=== PATIENT | female | born 1990 | race Caucasian/White ===

== ENCOUNTER 2023-06-13 17:56 | Emergency (ER) | payer OTHER ==
[2023-06-13 18:06] VITALS: BP 93/55; PULSE 85; RESP 18; TEMP 98; BMI 28.3
[2023-06-13 18:44] LABS: BASO % 1.1 % (0-2.0); EOS % 3.7 % (0-4.5); HEMATOCRIT 42.2 % (32.4-45.2); HEMOGLOBIN 14.1 GM/dL (10.7-15.3); LYMPH % 53.9 % (8-40); MCH 31.1 pg (25.7-33.7); MCHC 33.4 g/dl (32.0-36.0); MEAN PLT VOLUME 8.9 fl (7.5-11.1); MONO % 6.7 % (3.8-10.2); NEUT % 34.6 % (42.8-82.8); PH,URINE 5.5 (5.0-8.0); PLATELET COUNT 224 10^3/uL (134-434); RBC 4.54 M/mm3 (3.60-5.2); RDW 13.3 % (11.6-15.6); URINE APPEARANCE CLEAR; URINE BILIRUBIN NEGATIVE (NEGATIVE); URINE COLOR YELLOW; URINE GLUCOSE (UA) NEGATIVE (NEGATIVE); URINE KETONE NEGATIVE (NEGATIVE); URINE LEUK ESTERASE NEGATIVE (NEGATIVE); URINE NITRITE NEGATIVE (NEGATIVE); URINE PROTEIN NEGATIVE (NEGATIVE); URINE UROBILINOGEN 0.2 mg/dL (0.2-1.0); WHITE BLOOD COUNT 4.7 K/mm3 (4.0-10.0)
[2023-06-13 19:15] LABS: CHLORIDE 105 mmol/L (98-107); POTASSIUM 3.8 mmol/L (3.5-5.1); SODIUM 140 mmol/L (136-145)
[2023-06-13 19:17] LABS: ALBUMIN 3.8 g/dl (3.4-5.0); ANION GAP 8 mmol/L (4-13); BLOOD UREA NITROGEN 13.4 mg/dL (7-18); CALCIUM 8.7 mg/dL (8.5-10.1); CO2 26 mmol/L (21-32); GLUCOSE,RANDOM 90 mg/dL (74-106)
[2023-06-13 19:20] LABS: CREATININE 0.9 mg/dL (0.55-1.3); SGPT/ALT 17 U/L (13-61)
[2023-06-13 19:21] LABS: SGOT/AST 17 U/L (15-37)
[2023-06-13 19:22] LABS: BILIRUBIN,TOTAL 0.3 mg/dL (0.2-1); TOT PROT 7.7 g/dl (6.4-8.2)
[2023-06-13 19:23] LABS: ALK PHOS 52 U/L (45-117)
[2023-06-13 19:42] LABS: HCG,QUALITATIVE URINE Negative
== END 2023-06-13 22:22 | disposition home or self-care (01) ==
LOC: JER 17:56
DX: R10.2 Pelvic and perineal pain (principal); Z32.02 Encounter for pregnancy test, result negative
CPT/HCPCS: 36415; 80053; 81003; 84702; 84703; 85025; 86850; 86900; 86901; 87086; 99283-25

== ENCOUNTER 2024-01-28 13:04 | Emergency (ER) | payer OTHER ==
[2024-01-28 13:15] VITALS: BP 96/64; PULSE 80; RESP 18; TEMP 98.1; BMI 26.4
== END 2024-01-28 15:39 | disposition home or self-care (01) ==
LOC: JER 13:04
DX: M54.6 Pain in thoracic spine (principal); M47.22 Other spondylosis with radiculopathy, cervical region; R20.0 Anesthesia of skin; R53.1 Weakness; M25.511 Pain in right shoulder; M79.601 Pain in right arm
CPT/HCPCS: 70450-TC; 72125-TC; 99284-25